=== PATIENT | male | born 1965 | race Caucasian/White ===

== ENCOUNTER 2018-01-23 09:05 | Inpatient (IN) | payer OTHER ==
[2018-01-23 10:20] VITALS: BMI 26.3
--- NOTE | 2018-01-23 12:59 | HP ---
COWS - Scale Resting Pulse: 2= MT 101-120 Sweatin=Flushed/Facial Moisture Restless Observation: 3= Extraneous Movement Pupil Size: 2= Moderately Dilated Bone or Joint Aches: 2= Severe Diffuse Aches Runny Nose/ Eye Tearin= Runny Nose/Eyes GI Upset > 30mins: 3= Vomiting/Diarrhea Tremor Observation: 2= Slight Tremor Visible Yawning Observation: 2= >3x During Session Anxiety or Irritability: 2=Irritable/Anxious Goose Flesh Skin: 0=Smooth Skin COWS Score: 22 CIWA Score - CIWA Score Nausea/Vomitin Muscle Tremors: 3 Anxiety: 3 Agitation: 3 Paroxysmal Sweats: 2 Orientation: 0-Oriented Tacttile Disturbances: 2-Mild Itch/Numbness/Burn Auditory Disturbances: 2-Mild Harshness/Frighten Visual Disturbances: 1-Very Mild Sensitivity Headache: 2-Mild CIWA-Ar Total Score: 21 Admission ROS [facility]HS - HPI Chief Complaint: i need help to stop using heroin and alcohol Allergies/Adverse Reactions: Allergies Allergy/AdvReac Type Severity Reaction Status Date / Time Penicillins Allergy Severe Verified 01/23/18 10:34 History of Present Illness: this 52 years old male with heroin and alcohol dependence,seeking detox, withdrawal symptom,last detox 2001 in [facility] seizure weight loss anxiety,depression,insomnia positive ppd no sobriety hiv since 1995 asthma - Ebola screening Have you traveled outside of the country in the last 21 days: No (N) Have you had contact with anyone from an Ebola affected area: No Have you been sick,other than usual withdrawal symptoms: No Do you have a fever: No - Review of Systems Constitutional: Diaphoresis, Malaise, Night Sweats, Changes in sleep, Weakness, Unexplained wgt Loss EENT: reports: Tearing, Nose Congestion Respiratory: reports: No Symptoms reported, Other (asthma) Cardiac: reports: Palpitations GI: reports: Diarrhea, Nausea, Vomiting, Abdominal cramping : reports: No Symptoms Reported Musculoskeletal: reports: Back Pain, Joint Pain, Muscle Pain, Joint Stiffness Integumentary: reports: Dryness Neuro: reports: Headache, Tremors Endocrine: reports: No Symptoms Reported Hematology: reports: No Symptoms Reported Psychiatric: reports: No Sypmtoms Reported, Judgement Intact, Mood/Affect Appropiate, Orientated x3, Anxious, Depressed Patient History - Patient Medical History Hx Asthma: Yes Hx Chronic Obstructive Pulmonary Disease (COPD): No Hx Cardiac Disorders: No Hx Hypertension: No Hx Seizures: Yes (seizure disorder last 3 weeks ago.) Hx Diabetes: No Hx Gastrointestinal Disorders: No Hx Genitourinary Disorders: No Hx Sexually Transmitted Disorders: No Hx Renal Disease (ESRD): No Hx Thyroid Disease: No Hx Human Immunodeficiency Virus (HIV): Yes (since 1995 non compliance) Hx Hepatitis C: Yes (treated ) Hx Depression: Yes (anxiety,insomnia) Hx Suicide Attempt: No Hx Bipolar Disorder: No Hx Schizophrenia: No Other Medical History: no suicidal,no homicidal - Patient Surgical History Past Surgical History: Yes Other Surgical History: Tendon repair to L hand in 2017 with deformty Anesthesia Reaction: No - PPD History Previous Implant?: Yes Documented Results: Positive w/o proof Implanted On Prior [facility] Admission?: No PPD to be Administered?: No - Smoking Cessation Smoking history: Current every day smoker Have you smoked in the past 12 months: Yes Aproximately how many cigarettes per day: 3 Hx Chewing Tobacco Use: No Initiated information on smoking cessation: Yes 'Breaking Loose' booklet given: 01/23/18 - Substance & Tx. History Hx Alcohol Use: Yes Hx Substance Use: Yes Substance Use Type: Alcohol, Heroin Hx Substance Use Treatment: Yes (last 2001) - Substances Abused Heroin Route: Injection Amount used: 10 BAGS Age of first use: 15 Date of Last Use: 01/22/18 Alcohol Route: Oral Frequency: 1-3 times last 30 days Amount used: 3 BEERS Age of first use: 8 Date of Last Use: 01/22/18 Family Disease History - Family Disease History Family History: Denies Admission Physical Exam [facility] - Vital Signs Vital Signs: Vital Signs - 24 hr 01/23/18 10:16 Temperature 96.5 F L Pulse Rate 101 H Respiratory 18 Rate Blood Pressure 129/82 - Physical General Appearance: Yes: Moderate Distress, Tremorous, Irritable, Sweating, Anxious HEENTM: Yes: Normocephalic, SHERLYN, Pharynx Normal Respiratory: Yes: Lungs Clear, Normal Breath Sounds, No Respiratory Distress Neck: Yes: Within Normal Limits, Supple, Trachea in good position Breast: Yes: Within Normal Limits Cardiology: Yes: Tachycardia Abdominal: Yes: Within Normal Limits, Normal Bowel Sounds, Non Tender, Soft Genitourinary: Yes: Within Normal Limits Back: Yes: Muscle Spasm Musculoskeletal: Yes: Back pain, Muscle Pain, Other (deformity of left ring and 5th fingers with limitation in extension) Extremities: Yes: Tremors, Other (deformity of left ring and 5th finger with limitation in extension) Neurological: Yes: diesel service journeyman II-XII NML intact, Alert, Motor Strength 5/5, Normal Mood /Affect Integumentary: Yes: Dry Lymphatic: Yes: Within Normal Limits - Diagnostic (1) Opioid dependence with withdrawal Current Visit: Yes Status: Acute (2) Alcohol dependence Current Visit: Yes Status: Acute Qualifiers: Substance use status: uncomplicated Qualified Code(s): F10.20 - Alcohol dependence, uncomplicated (3) Drug withdrawal seizure Current Visit: Yes Status: Chronic Qualifiers: Complication of substance-induced condition: with unspecified complication Qualified Code(s): F19.239 - Other psychoactive substance dependence with withdrawal, unspecified; R56.9 - Unspecified convulsions; R56.9 - Unspecified convulsions; R56.9 - Unspecified convulsions; R56.9 - Unspecified convulsions (4) Syncope Current Visit: Yes Status: Acute (5) IV drug user Current Visit: Yes Status: Acute (6) Nicotine dependence Current Visit: Yes Status: Chronic Qualifiers: Nicotine product type: cigarettes Substance use status: uncomplicated Qualified Code(s): F17.210 - Nicotine dependence, cigarettes, uncomplicated (7) Insomnia secondary to depression with anxiety Current Visit: Yes Status: Acute (8) Weight loss Current Visit: Yes Status: Acute (9) HIV (human immunodeficiency virus infection) Current Visit: Yes Status: Chronic (10) Asthma Current Visit: Yes Status: Chronic Qualifiers: Asthma severity: mild Asthma persistence: intermittent Asthma complication type: uncomplicated Qualified Code(s): J45.20 - Mild intermittent asthma, uncomplicated Cleared for Admission [facility] - Detox or Rehab S Level of Care: Medically Managed Detox Regimen/Protocol: Methadone S Breath Alcohol Content Breath Alcohol Content: 5 Urine Drug Screen - Results Drug Screen Negative: No Urine Drug Screen Results: OPI-Opiates
[2018-01-23] MEDS ORDERED: MAGNESIUM HYDROX 2400MG/30ML ORAL SUSPENSION 30 ML CUP PO PRN (13:18)
[2018-01-23] MEDS ORDERED: NICOTINE POLACRILEX 2 MG GUM BUC PRN (13:18)
[2018-01-23] MEDS ORDERED: MAGNESIUM CITRATE 300 ML BOTTLE PO PRN (13:18)
[2018-01-23] MEDS ORDERED: P-EPHED 60MG/TRIPROLIDI 2.5MG TABLET PO PRN (13:18)
[2018-01-23] MEDS ORDERED: MAG HYDROX/AL HYDROX/SIMETH 30 ML UNIT-DOSE CUP PO PRN (13:18)
[2018-01-23] MEDS ORDERED: guaiFENesin/D-METHORPHAN HB 10 ML UNIT-DOSE CUPS PO PRN (13:18)
[2018-01-23] MEDS ORDERED: MENTHOL/PHENOL 1 EACH UD MM PRN (13:18)
[2018-01-23] MEDS ORDERED: ALBUTEROL SO4 18 GM HFA INHALER IH PRN (13:24)
[2018-01-23] MEDS ORDERED: METHADONE HCL 10 MG TABLET (FOR DETOX USE ONLY) PO ONE ×2 (14:05→23:00)
[2018-01-23] MEDS: diazePAM 5 MG TABLET PO PRN ×2 (15:19→22:16)
[2018-01-23] MEDS: NICOTINE 21 MG/24 HOURS TOPICAL PATCH TD SCH (15:20)
[2018-01-23] MEDS ORDERED: levETIRAcetam 500 MG TABLET (FP) PO ONE (17:45)
--- NOTE | 2018-01-23 17:53 | CONSULT ---
[facility] Psychiatric Consult - Data Date of interview: 01/23/18 Admission source: [facility] Identifying data: First admission to [facility] for this 52 y/o male seeking detox treatment on for alcohol and heroin dependence.Patient is single,a father of three,domiciled and employed. Substance Abuse History: Confirmed by patient in this session.Details in current [facility] report : Smoking history: Current every day smoker. Have you smoked in the past 12 months: Yes. Aproximately how many cigarettes per day: 3. Hx Chewing Tobacco Use: No. Initiated information on smoking cessation: Yes. 'Breaking Loose' booklet given: 01/23/18. - Substance & Tx. History. Hx Alcohol Use: Yes. Hx Substance Use: Yes. Substance Use Type: Alcohol, Heroin. Hx Substance Use Treatment: Yes (last 2001). - Substances Abused. * * Heroin. Route: Injection. Amount used: 10 BAGS. Age of first use: 15. Date of Last Use: 01/22/18. Alcohol. Route: Oral. Frequency: 1-3 times last 30 days. Amount used: 3 BEERS. Age of first use: 8. Date of Last Use: 01/22/18 Medical History: Hepatitis C,positive PPD,HIV infection since 1995 (on HAART medications),seizure disorder (on levetiracetam) and a history of orthosurgery ( tendon repair in left hand / contracture of left 5th finger). Psychiatric History: Patient is a difficult and disorganized historian.Mr Arrieta seems to indicate a distant history of psychiatric care during his 10 years of incarceration.Released yesterday as per self-report." I used to be on psychiatric medications until the doctor told me that I am doing OK years ago.They stopped giving me psychiatric medications.I have been doing fine for a long time." Patient states that he does not have a psychiatric diagnosis.Denies history of suicide attempts. Physical/Sexual Abuse/Trauma History: Patient denies history of abuse.Traumatized by years of [facility]. Additional Comment: Urine Drug Screen Results: OPI-Opiates.Noted. Mental Status Exam - Mental Status Exam Alert and Oriented to: Time, Place, Person Cognitive Function: Good Patient Appearance: Well Groomed (poor oral hygiene and several missing teeth) Mood: Nervous, Anxious Affect: Appropriate, Mood Congruent Patient Behavior: Fatigued, Cooperative Speech Pattern: Clear, Appropriate Voice Loudness: Normal Thought Process: Goal Oriented Thought Disorder: Not Present Hallucinations: Denies Suicidal Ideation: Denies Homicidal Ideation: Denies Insight/Judgement: Poor Sleep: Poorly, Difficulty falling asleep Appetite: Good Muscle strength/Tone: Normal Gait/Station: Normal Psychiatric Findings - Problem List ([place] 1, 2,3) (1) Opioid dependence with withdrawal Current Visit: Yes Status: Acute (2) Alcohol dependence Current Visit: Yes Status: Acute (3) Nicotine dependence Current Visit: Yes Status: Acute (4) Substance induced mood disorder Current Visit: Yes Status: Acute (5) Insomnia Current Visit: Yes Status: Acute - Initial Treatment Plan Initial Treatment Plan: Psychoeducation.Sleep hygiene.Detoxification in progress.Ambien 5 mg po hs prn.Patient is made aware of risk for parasomnias ( sleep-walking).He agrees to follow this careplan.Seizures precautions.Observation.
[2018-01-23 18:41] LABS: URINE APPEARANCE CLEAR; URINE BILIRUBIN NEGATIVE (<2.0 mg/dL); URINE BLOOD 1+ (NEGATIVE); URINE COLOR LTYELLOW; URINE GLUCOSE (UA) NEGATIVE (NEGATIVE); URINE KETONE TRACE (NEGATIVE); URINE LEUK ESTERASE NEGATIVE (NEGATIVE); URINE NITRITE NEGATIVE (NEGATIVE); URINE PROTEIN NEGATIVE (NEGATIVE); URINE UROBILINOGEN NEGATIVE mg/dL (0.2-1.0)
[2018-01-23 19:21] LABS: EPI CELLS RARE /HPF (FEW); URINE MUCUS RARE
[2018-01-23] MEDS ORDERED: ZOLPIDEM TARTRATE 5 MG TABLET PO PRN (22:00)
[2018-01-23] MEDS ORDERED: levETIRAcetam 500 MG TABLET (FP) PO SCH (22:00)
[2018-01-23] MEDS ORDERED: MELATONIN 5 MG TABLETS PO PRN (22:00)
[2018-01-23] MEDS: THIAMINE HCL 100 MG TABLET (FP) PO SCH (22:12)
[2018-01-24] MEDS: diazePAM 5 MG TABLET PO PRN ×4 (05:11→22:20)
[2018-01-24] MEDS: ACETAMINOPHEN 325 MG TABLET (FP) PO PRN ×2 (05:11→18:14)
[2018-01-24] MEDS: levETIRAcetam 500 MG TABLET (FP) PO SCH ×2 (05:11→17:17)
[2018-01-24] MEDS: PRENATAL VITAMINS W/ FOLIC ACID TABLET (FP) PO SCH (09:16)
[2018-01-24] MEDS: NICOTINE 21 MG/24 HOURS TOPICAL PATCH TD SCH (09:20)
--- NOTE | 2018-01-24 09:30 | PN ---
[facility] CIWA - CIWA Score Nausea/Vomitin Muscle Tremors: None Anxiety: 4-Mod. Anxious/Guarded Agitation: 4-Moderately Restless Paroxysmal Sweats: 3 Orientation: 0-Oriented Tacttile Disturbances: 2-Mild Itch/Numbness/Burn Auditory Disturbances: 0-None Visual Disturbances: 0-None Headache: 0-None Present CIWA-Ar Total Score: 18 BHS COWS - Scale Resting Pulse: 0= [place] 80 or Below Sweatin= Chills/Flushing Restless Observation: 1= Difficult to Sit Still Pupil Size: 0= Normal to Room Light Bone or Joint Aches: 2= Severe Diffuse Aches Runny Nose/ Eye Tearin= None GI Upset > 30mins: 3= Vomiting/Diarrhea Tremor Observation of Outstretched Hands: 0= None Yawning Observation: 1= 1-2x During Session Anxiety or Irritability: 2=Irritable/Anxious Goose Flesh Skin: 3=Piloerection COWS Score: 13 S Progress Note (SOAP) Subjective: Vomiting, Body Aches, Anxious, Fatigue. Objective: PATIENT A & O X 3, OBSERVED AMBULATING ON UNIT. NO ACUTE DISTRESS. 01/24/18 09:32 Vital Signs Temperature 96.8 F L 01/24/18 06:52 Pulse Rate 69 01/24/18 06:52 Respiratory Rate 18 01/24/18 06:52 Blood Pressure 113/80 01/24/18 06:52 O2 Sat by Pulse Oximetry (%) Laboratory Tests 01/23/18 15:00 Urine Color Ltyellow Urine Appearance Clear Urine pH 5.0 Ur Specific [place] 1.012 Urine Protein Negative Urine Glucose (UA) Negative Urine Ketones Trace H Urine Blood 1+ H Urine Nitrite Negative Urine Bilirubin Negative Urine Urobilinogen Negative Ur Leukocyte Esterase Negative Urine WBC (Auto) None Urine RBC (Auto) 2 Ur Epithelial Cells Rare Urine Mucus Rare UA RESULTS NOTED. CBC, CMP, RPR, KEPPRA LEVEL RESULTS PENDING. 01/24/18 09:34 Assessment: 01/24/18 09:34 WITHDRAWAL SYMPTOMS. Plan: CONTINUE DETOX. AT TIME OF AM ROUND ASSESSMENT, PATIENT REPORTS PAIN THROUGHOUT LEFT ARM AND HAND IN LEFT RIBCAGE, WELL SINCE LAST NIGHT. SEVERAL SMALL AREAS OF SWELLING NOTED ON LEFT UPPER ARM. NO ERYTHEMA, WOUNDS, BLEEDING, OR UNUSUAL DISCHARGE NOTED ON LEFT ARM OR LEFT RIBCAGE. PATIENT DENIES ANY HISTORY OF IV DRUG USE IN LEFT ARM AND HE DENIES ANY HISTORY OF RECENT FALL OR TRAUMATIC INJURY TO LEFT ARM OR LEFT RIBCAGE. PATIENT DOES HAVE HISTORY OF SURGICAL TENDON REPAIR TO LEFT HAND APPROX. 3 WEEKS AGO. PATIENT DENIES NUMBNESS, TINGLING, AND WEAKNESS IN LEFT ARM. PATIENT DENIES CHEST PAIN AND DIZZINESS. DESPITE RECOMMENDATION AND STRONG ENCOURAGEMENT BY CONCRETE CARPENTER FORM PATIENT TO BE TAKEN IMMEDIATELY VIA AMBULANCE TO [facility], PATIENT REFUSED TO DO SO. REFUSAL OF RECOMMENDED CARE FORM SIGNED BY PATIENT. PATIENT ADVISED TO LET MEDICAL / NURSING STAFF KNOW IMMEDIATELY SHOULD PAIN IN ARM/RIBCAGE BECOME WORSE OF SHOULD HE NOTICE ANY NEW AREAS OF SWELLING. PATIENT VERBALIZED UNDERSTANDING OF RECOMMENDATION.
--- NOTE | 2018-01-24 09:52 | EKG ---
Test Reason : Blood Pressure : / mmHG Vent. Rate : 083 BPM Atrial Rate : 083 BPM P-R Int : 134 ms QRS Dur : 102 ms QT Int : 352 ms P-R-T Axes : 072 005 053 degrees QTc Int : 413 ms NORMAL SINUS RHYTHM NORMAL ECG NO PREVIOUS ECGS AVAILABLE Confirmed by CASA JUÁREZ, SEBASTIÁN ([id number]) on 01/24/2018 9:52:06 AM Referred By: Confirmed By:SEBASTIÁN CORMIER MD
[2018-01-24] MEDS ORDERED: METHADONE HCL 10 MG TABLET (FOR DETOX USE ONLY) PO ONE (10:00)
[2018-01-24 10:05] LABS: HEMATOCRIT 44.4 % (35.4-49); HEMOGLOBIN 15.2 GM/dL (11.7-16.9); MCH 31.3 pg (25.7-33.7); MCHC 34.1 g/dl (32.0-35.9); MEAN CELL VOLUME 91.9 fl (80-96); MEAN PLT VOLUME 8.9 fl (7.5-11.1); PLATELET COUNT 191 K/MM3 (134-434); RBC 4.83 M/mm3 (4.00-5.60); RDW 14.1 % (11.9-15.9); WHITE BLOOD COUNT 8.4 K/mm3 (4.0-10.0)
[2018-01-24 10:13] LABS: ALBUMIN 4.3 g/dl (3.4-5.0); ANION GAP 5 (8-16); BLOOD UREA NITROGEN 20 mg/dL (7-18); CALCIUM 8.6 mg/dL (8.5-10.1); CHLORIDE 106 mmol/L (98-107); CO2 28 mmol/L (21-32); GLUCOSE,RANDOM 84 mg/dL (74-106); POTASSIUM 4.1 mmol/L (3.5-5.1); SODIUM 139 mmol/L (136-145)
[2018-01-24 10:25] LABS: ALK PHOS 110 U/L (45-117); BILIRUBIN,TOTAL 0.6 mg/dL (0.2-1.0); CREATININE 0.7 mg/dL (0.7-1.3); SGOT/AST 46 U/L (15-37); SGPT/ALT 31 U/L (12-78); TOT PROT 8.6 g/dl (6.4-8.2)
[2018-01-24 11:00] LABS: SICKLE CELL SCREEN NEGATIVE (NEGATIVE)
[2018-01-24] MEDS: THIAMINE HCL 100 MG TABLET (FP) PO SCH (22:20)
[2018-01-25] MEDS: levETIRAcetam 500 MG TABLET (FP) PO SCH ×2 (05:30→17:28)
[2018-01-25] MEDS: diazePAM 5 MG TABLET PO PRN ×4 (05:30→22:17)
[2018-01-25] MEDS: IBUPROFEN 400 MG TABLET (FP) PO PRN (06:06)
[2018-01-25] MEDS: LOPERAMIDE HCL 2 MG CAPSULE PO PRN (08:38)
[2018-01-25] MEDS ORDERED: METHADONE HCL 5 MG TABLET (FOR DETOX USE ONLY) PO ONE (10:00)
[2018-01-25] MEDS: PRENATAL VITAMINS W/ FOLIC ACID TABLET (FP) PO SCH (10:04)
[2018-01-25] MEDS: NICOTINE 21 MG/24 HOURS TOPICAL PATCH TD SCH (10:08)
--- NOTE | 2018-01-25 16:12 | PN ---
S COWS - Scale Resting Pulse: 0= ID 80 or Below Sweatin=Flushed/Facial Moisture Restless Observation: 3= Extraneous Movement Pupil Size: 1= Pupils >than Normal Bone or Joint Aches: 2= Severe Diffuse Aches Runny Nose/ Eye Tearin= Runny Nose/Eyes GI Upset > 30mins: 2= Nausea/Diarrhea Tremor Observation of Outstretched Hands: 2= Slight Tremor Visible Yawning Observation: 1= 1-2x During Session Anxiety or Irritability: 2=Irritable/Anxious Goose Flesh Skin: 0=Smooth Skin COWS Score: 17 S Progress Note (SOAP) Subjective: Generalized body ache, sweating, anxious Objective: 01/25/18 16:09 Last Vital Signs Temp Pulse Resp BP Pulse Ox 96.4 F L 79 18 115/82 01/25/18 14:21 01/25/18 14:21 01/25/18 14:21 01/25/18 14:21 Laboratory Tests 01/23/18 01/24/18 01/24/18 15:00 06:00 06:00 WBC 8.4 RBC 4.83 Hgb 15.2 Hct 44.4 MCV 91.9 MCH 31.3 MCHC 34.1 RDW 14.1 Plt Count 191 MPV 8.9 Sickle Cell Screen Negative Sodium 139 Potassium 4.1 Chloride 106 Carbon Dioxide 28 Anion Gap 5 L BUN 20 H Creatinine 0.7 Creat Clearance w eGFR > 60 Random Glucose 84 Calcium 8.6 Total Bilirubin 0.6 AST 46 H ALT 31 Alkaline Phosphatase 110 Total Protein 8.6 H Albumin 4.3 Urine Color Ltyellow Urine Appearance Clear Urine pH 5.0 Ur Specific [place] 1.012 Urine Protein Negative Urine Glucose (UA) Negative Urine Ketones Trace H Urine Blood 1+ H Urine Nitrite Negative Urine Bilirubin Negative Urine Urobilinogen Negative Ur Leukocyte Esterase Negative Urine WBC (Auto) None Urine RBC (Auto) 2 Ur Epithelial Cells Rare Urine Mucus Rare RPR Titer 01/24/18 06:00 WBC RBC Hgb Hct MCV MCH MCHC RDW Plt Count MPV Sickle Cell Screen Sodium Potassium Chloride Carbon Dioxide Anion Gap BUN Creatinine Creat Clearance w eGFR Random Glucose Calcium Total Bilirubin AST ALT Alkaline Phosphatase Total Protein Albumin Urine Color Urine Appearance Urine pH Ur Specific [place] Urine Protein Urine Glucose (UA) Urine Ketones Urine Blood Urine Nitrite Urine Bilirubin Urine Urobilinogen Ur Leukocyte Esterase Urine WBC (Auto) Urine RBC (Auto) Ur Epithelial Cells Urine Mucus RPR Titer Nonreactive Labs reviewed: bun 20, abnormal UA Assessment: 01/25/18 16:10 Withdrawal symptoms Noted with azotemia and abnormal UA Plan: Continue detox Azotemia: encouraged PO hydration status Abnormal UA: encouraged to drink lots of water for hydration, repeat UA
[2018-01-25] MEDS: hydrOXYzine PAMOATE 25 MG CAPSULE (FP) PO PRN (17:29)
[2018-01-25] MEDS: THIAMINE HCL 100 MG TABLET (FP) PO SCH (22:22)
[2018-01-26] MEDS: LOPERAMIDE HCL 2 MG CAPSULE PO PRN ×2 (04:01→17:42)
[2018-01-26] MEDS: diazePAM 5 MG TABLET PO PRN ×2 (04:01→09:19)
[2018-01-26] MEDS: levETIRAcetam 500 MG TABLET (FP) PO SCH ×2 (05:41→17:03)
[2018-01-26] MEDS: CYCLOBENZAPRINE HCL 10 MG TABLET (FP) PO PRN ×2 (05:41→17:35)
[2018-01-26] MEDS: hydrOXYzine PAMOATE 25 MG CAPSULE (FP) PO PRN ×2 (05:42→17:03)
[2018-01-26] MEDS: PRENATAL VITAMINS W/ FOLIC ACID TABLET (FP) PO SCH (09:18)
[2018-01-26] MEDS: NICOTINE 21 MG/24 HOURS TOPICAL PATCH TD SCH (09:19)
[2018-01-26] MEDS ORDERED: METHADONE HCL 5 MG TABLET (FOR DETOX USE ONLY) PO ONE (10:00)
[2018-01-26 10:44] LABS: URINE APPEARANCE CLEAR; URINE BILIRUBIN NEGATIVE (<2.0 mg/dL); URINE BLOOD NEGATIVE (NEGATIVE); URINE COLOR YELLOW; URINE GLUCOSE (UA) NEGATIVE (NEGATIVE); URINE KETONE NEGATIVE (NEGATIVE); URINE LEUK ESTERASE NEGATIVE (NEGATIVE); URINE NITRITE NEGATIVE (NEGATIVE); URINE PROTEIN NEGATIVE (NEGATIVE); URINE UROBILINOGEN NEGATIVE mg/dL (0.2-1.0)
--- NOTE | 2018-01-26 12:36 | PN ---
[facility] Progress Note (SOAP) Subjective: Sweats Shakes Sleep disturbance Objective: 01/26/18 12:35 A & O x 3 irritable Anxious Vital Signs Temperature 96.3 F L 01/26/18 09:15 Pulse Rate 85 01/26/18 09:15 Respiratory Rate 20 01/26/18 09:15 Blood Pressure 118/70 01/26/18 09:15 O2 Sat by Pulse Oximetry (%) Assessment: 01/26/18 12:35 Withdrawal sx Plan: Continue detox
[2018-01-26] MEDS: THIAMINE HCL 100 MG TABLET (FP) PO SCH ×2 (22:51→23:58)
[2018-01-27] MEDS: hydrOXYzine PAMOATE 25 MG CAPSULE (FP) PO PRN ×2 (01:52→05:38)
[2018-01-27] MEDS: levETIRAcetam 500 MG TABLET (FP) PO SCH ×2 (05:38→18:22)
[2018-01-27] MEDS: CYCLOBENZAPRINE HCL 10 MG TABLET (FP) PO PRN (05:38)
[2018-01-27] MEDS: IBUPROFEN 400 MG TABLET (FP) PO PRN (09:54)
[2018-01-27] MEDS: PRENATAL VITAMINS W/ FOLIC ACID TABLET (FP) PO SCH (09:54)
[2018-01-27] MEDS ORDERED: METHADONE HCL 10 MG TABLET (FOR DETOX USE ONLY) PO ONE (10:00)
[2018-01-27] MEDS: NICOTINE 21 MG/24 HOURS TOPICAL PATCH TD SCH (11:40)
--- NOTE | 2018-01-27 12:51 | PN ---
S Progress Note (SOAP) Subjective: Body Aches, Anxious, Diarrhea, Tremors. Patient reports that he is still feeling pain in Left forearm, and hand. Objective: PATIENT A & O X 2 (UNCERTAIN ABOUT CURRENT DAY / DATE). PATIENT OBSERVED AMBULATING ON UNIT. NO ACUTE DISTRESS SMALL AREA OF SWELLING NOTED NEAR LEFT ELBOW. NO ERYTHEMA, BLEEDING, WOUNDS, OR UNUSUAL DISCHARGE NOTED AT AFFECTED SITE. 01/27/18 12:45 Vital Signs Temperature 97.6 F 01/27/18 09:11 Pulse Rate 85 01/27/18 09:11 Respiratory Rate 18 01/27/18 09:11 Blood Pressure 117/82 01/27/18 09:11 O2 Sat by Pulse Oximetry (%) Laboratory Tests 01/23/18 01/24/18 01/24/18 15:00 06:00 06:00 WBC 8.4 RBC 4.83 Hgb 15.2 Hct 44.4 MCV 91.9 MCH 31.3 MCHC 34.1 RDW 14.1 Plt Count 191 MPV 8.9 Sickle Cell Screen Negative Sodium 139 Potassium 4.1 Chloride 106 Carbon Dioxide 28 Anion Gap 5 L BUN 20 H Creatinine 0.7 Creat Clearance w eGFR > 60 Random Glucose 84 Calcium 8.6 Total Bilirubin 0.6 AST 46 H ALT 31 Alkaline Phosphatase 110 Total Protein 8.6 H Albumin 4.3 Urine Color Ltyellow Urine Appearance Clear Urine pH 5.0 Ur Specific [place] 1.012 Urine Protein Negative Urine Glucose (UA) Negative Urine Ketones Trace H Urine Blood 1+ H Urine Nitrite Negative Urine Bilirubin Negative Urine Urobilinogen Negative Ur Leukocyte Esterase Negative Urine WBC (Auto) None Urine RBC (Auto) 2 Ur Epithelial Cells Rare Urine Mucus Rare Levetiracetam RPR Titer 01/24/18 01/24/18 01/26/18 06:00 06:30 08:00 WBC RBC Hgb Hct MCV MCH MCHC RDW Plt Count MPV Sickle Cell Screen Sodium Potassium Chloride Carbon Dioxide Anion Gap BUN Creatinine Creat Clearance w eGFR Random Glucose Calcium Total Bilirubin AST ALT Alkaline Phosphatase Total Protein Albumin Urine Color Yellow Urine Appearance Clear Urine pH 5.0 Ur Specific [place] 1.021 Urine Protein Negative Urine Glucose (UA) Negative Urine Ketones Negative Urine Blood Negative Urine Nitrite Negative Urine Bilirubin Negative Urine Urobilinogen Negative Ur Leukocyte Esterase Negative Urine WBC (Auto) Urine RBC (Auto) Ur Epithelial Cells Urine Mucus Levetiracetam None detected RPR Titer Nonreactive LABS NOTED. Assessment: 01/27/18 12:48 WITHDRAWAL SYMPTOMS. Plan: CONTINUE DETOX. PATIENT AGAIN ADVISED TO GO TO [facility] ER FOR FURTHER EVALUATION OF LEFT ARM. HOWEVER, PATIENT DECLINED TO DO SO AGAIN. PATIENT ADVISED TO NOTIFY MEDICAL / NURSING STAFF SHOULD PAIN AND / OR SWELLING IN LEFT ARM BECOME MORE SEVERE AT ANY TIME.
[2018-01-27] MEDS ORDERED: COLLOIDAL OATMEAL 1 BAR EACH TP PRN (14:31)
[2018-01-27] MEDS: THIAMINE HCL 100 MG TABLET (FP) PO SCH (22:44)
[2018-01-28] MEDS: levETIRAcetam 500 MG TABLET (FP) PO SCH (05:02)
[2018-01-28] MEDS ORDERED: METHADONE HCL 5 MG TABLET (FOR DETOX USE ONLY) PO ONE (06:00)
[2018-01-28 06:26] VITALS: BP 124/82; PULSE 72; TEMP 96.1
--- NOTE | 2018-01-28 10:25 | PN ---
[facility] Progress Note (SOAP) Subjective: DETOX COMPLETED. ALERT O X 3. PT REFERR[facility]. INITIALLY , PATIENT REFUSED TO GO TO REHAB WANTING TO GO HOME AND VERY AGITATED, RESTLESS AND CANTANKEROUS HAVING A DIFFICULT TIME TO COME UP WITH A PLAN. THE SECURITY STAFF, HIS COUNSELOR ALFA MAZA AND ELECTRONICS MECHANIC APPRENTICE ANNETTE WARD WERE ON THE UNIT TO CALM AND ENCOURAGE PATIENT ON PROPER DECISION FOR AFTERCARE. AT THE END HE WENT TO [address] TO CONTINUE WITH TREATMENT. Objective: 01/28/18 10:25 Vital Signs Temperature 96.1 F L 01/28/18 06:25 Pulse Rate 72 01/28/18 06:25 Respiratory Rate 18 01/28/18 06:25 Blood Pressure 124/82 01/28/18 06:25 O2 Sat by Pulse Oximetry (%) Laboratory Last Values WBC 8.4 K/mm3 (4.0-10.0) 01/24/18 06:00 RBC 4.83 M/mm3 (4.00-5.60) 01/24/18 06:00 Hgb 15.2 GM/dL (11.7-16.9) 01/24/18 06:00 Hct 44.4 % (35.4-49) 01/24/18 06:00 MCV 91.9 fl (80-96) 01/24/18 06:00 MCH 31.3 pg (25.7-33.7) 01/24/18 06:00 MCHC 34.1 g/dl (32.0-35.9) 01/24/18 06:00 RDW 14.1 % (11.9-15.9) 01/24/18 06:00 Plt Count 191 K/MM3 (134-434) 01/24/18 06:00 MPV 8.9 fl (7.5-11.1) 01/24/18 06:00 Sickle Cell Screen Negative (NEGATIVE) 01/24/18 06:00 Sodium 139 mmol/L (136-145) 01/24/18 06:00 Potassium 4.1 mmol/L (3.5-5.1) 01/24/18 06:00 Chloride 106 mmol/L (98-107) 01/24/18 06:00 Carbon Dioxide 28 mmol/L (21-32) 01/24/18 06:00 Anion Gap 5 (8-16) L 01/24/18 06:00 BUN 20 mg/dL (7-18) H 01/24/18 06:00 Creatinine 0.7 mg/dL (0.7-1.3) 01/24/18 06:00 Creat Clearance w eGFR > 60 (>60) 01/24/18 06:00 Random Glucose 84 mg/dL (74-106) 01/24/18 06:00 Calcium 8.6 mg/dL (8.5-10.1) 01/24/18 06:00 Total Bilirubin 0.6 mg/dL (0.2-1.0) 01/24/18 06:00 AST 46 U/L (15-37) H 01/24/18 06:00 ALT 31 U/L (12-78) 01/24/18 06:00 Alkaline Phosphatase 110 U/L (45-117) 01/24/18 06:00 Total Protein 8.6 g/dl (6.4-8.2) H 01/24/18 06:00 Albumin 4.3 g/dl (3.4-5.0) 01/24/18 06:00 Urine Color Yellow 01/26/18 08:00 Urine Appearance Clear 01/26/18 08:00 Urine pH 5.0 (5.0-8.0) 01/26/18 08:00 Ur Specific [place] 1.021 (1.001-1.035) 01/26/18 08:00 Urine Protein Negative (NEGATIVE) 01/26/18 08:00 Urine Glucose (UA) Negative (NEGATIVE) 01/26/18 08:00 Urine Ketones Negative (NEGATIVE) 01/26/18 08:00 Urine Blood Negative (NEGATIVE) 01/26/18 08:00 Urine Nitrite Negative (NEGATIVE) 01/26/18 08:00 Urine Bilirubin Negative (<2.0 mg/dL) 01/26/18 08:00 Urine Urobilinogen Negative mg/dL (0.2-1.0) 01/26/18 08:00 Ur Leukocyte Esterase Negative (NEGATIVE) 01/26/18 08:00 Urine WBC (Auto) None /hpf (3-5) 01/23/18 15:00 Urine RBC (Auto) 2 /hpf (0-3) 01/23/18 15:00 Ur Epithelial Cells Rare /HPF (FEW) 01/23/18 15:00 Urine Mucus Rare 01/23/18 15:00 Levetiracetam None detected MCG/ML (10.0-40.0) 01/24/18 06:30 RPR Titer Nonreactive (NONREACTIVE) 01/24/18 06:00 Assessment: 01/28/18 10:25 MEDICALLY STABLE Plan: D/C PT TODAY TO REHAB
--- NOTE | 2018-01-28 10:26 | DS ---
[facility] Detox Discharge Summary Admission Date: 01/23/18 Discharge Date: 01/28/18 - History Present History: Alcohol Dependence, Opioid Dependence Additional Comments: DTOX COMPLETED. ALERT O X3. REFERRED TO [place] [id number] [facility] FOR AFTERCARE TODAY. 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 Pertinent Past History: PLEASE SEE DX BELOW - Physical Exam Results Vital Signs: Vital Signs Temperature 96.1 F L 01/28/18 06:25 Pulse Rate 72 01/28/18 06:25 Respiratory Rate 18 01/28/18 06:25 Blood Pressure 124/82 01/28/18 06:25 O2 Sat by Pulse Oximetry (%) Pertinent Admission Physical Exam Findings: WITHDRAWAL SX Vital Signs Temperature 96.1 F L 01/28/18 06:25 Pulse Rate 72 01/28/18 06:25 Respiratory Rate 18 01/28/18 06:25 Blood Pressure 124/82 01/28/18 06:25 O2 Sat by Pulse Oximetry (%) Laboratory Last Values WBC 8.4 K/mm3 (4.0-10.0) 01/24/18 06:00 RBC 4.83 M/mm3 (4.00-5.60) 01/24/18 06:00 Hgb 15.2 GM/dL (11.7-16.9) 01/24/18 06:00 Hct 44.4 % (35.4-49) 01/24/18 06:00 MCV 91.9 fl (80-96) 01/24/18 06:00 MCH 31.3 pg (25.7-33.7) 01/24/18 06:00 MCHC 34.1 g/dl (32.0-35.9) 01/24/18 06:00 RDW 14.1 % (11.9-15.9) 01/24/18 06:00 Plt Count 191 K/MM3 (134-434) 01/24/18 06:00 MPV 8.9 fl (7.5-11.1) 01/24/18 06:00 Sickle Cell Screen Negative (NEGATIVE) 01/24/18 06:00 Sodium 139 mmol/L (136-145) 01/24/18 06:00 Potassium 4.1 mmol/L (3.5-5.1) 01/24/18 06:00 Chloride 106 mmol/L (98-107) 01/24/18 06:00 Carbon Dioxide 28 mmol/L (21-32) 01/24/18 06:00 Anion Gap 5 (8-16) L 01/24/18 06:00 BUN 20 mg/dL (7-18) H 01/24/18 06:00 Creatinine 0.7 mg/dL (0.7-1.3) 01/24/18 06:00 Creat Clearance w eGFR > 60 (>60) 01/24/18 06:00 Random Glucose 84 mg/dL (74-106) 01/24/18 06:00 Calcium 8.6 mg/dL (8.5-10.1) 01/24/18 06:00 Total Bilirubin 0.6 mg/dL (0.2-1.0) 01/24/18 06:00 AST 46 U/L (15-37) H 01/24/18 06:00 ALT 31 U/L (12-78) 01/24/18 06:00 Alkaline Phosphatase 110 U/L (45-117) 01/24/18 06:00 Total Protein 8.6 g/dl (6.4-8.2) H 01/24/18 06:00 Albumin 4.3 g/dl (3.4-5.0) 01/24/18 06:00 Urine Color Yellow 01/26/18 08:00 Urine Appearance Clear 01/26/18 08:00 Urine pH 5.0 (5.0-8.0) 01/26/18 08:00 Ur Specific [place] 1.021 (1.001-1.035) 01/26/18 08:00 Urine Protein Negative (NEGATIVE) 01/26/18 08:00 Urine Glucose (UA) Negative (NEGATIVE) 01/26/18 08:00 Urine Ketones Negative (NEGATIVE) 01/26/18 08:00 Urine Blood Negative (NEGATIVE) 01/26/18 08:00 Urine Nitrite Negative (NEGATIVE) 01/26/18 08:00 Urine Bilirubin Negative (<2.0 mg/dL) 01/26/18 08:00 Urine Urobilinogen Negative mg/dL (0.2-1.0) 01/26/18 08:00 Ur Leukocyte Esterase Negative (NEGATIVE) 01/26/18 08:00 Urine WBC (Auto) None /hpf (3-5) 01/23/18 15:00 Urine RBC (Auto) 2 /hpf (0-3) 01/23/18 15:00 Ur Epithelial Cells Rare /HPF (FEW) 01/23/18 15:00 Urine Mucus Rare 01/23/18 15:00 Levetiracetam None detected MCG/ML (10.0-40.0) 01/24/18 06:30 RPR Titer Nonreactive (NONREACTIVE) 01/24/18 06:00 - Treatment Hospital Course: Detox Protocol Followed, Detoxed Safely, Responded well, Discharged Condition Good, Rehab Referral Accepted - Medication Discharge Medications: Ambulatory Orders Albuterol Sulfate Inhaler - [Ventolin HFA Inhaler -] 2 inh PO Q4H PRN 01/23/18 Darunavir Ethanolate [Prezista -] 800 mg PO DAILY 01/23/18 levETIRAcetam [Keppra -] 500 mg PO BID #60 tablet 01/28/18 - Diagnosis (1) Opioid dependence with withdrawal Status: Acute (2) Weight loss Status: Acute (3) Asthma Status: Chronic Qualifiers: Asthma severity: mild Asthma persistence: intermittent Asthma complication type: uncomplicated Qualified Code(s): J45.20 - Mild intermittent asthma, uncomplicated (4) HIV (human immunodeficiency virus infection) Status: Chronic (5) Nicotine dependence Status: Acute Qualifiers: Nicotine product type: cigarettes Substance use status: in withdrawal Qualified Code(s): F17.213 - Nicotine dependence, cigarettes, with withdrawal (6) Hx of seizure disorder Status: Chronic (7) Alcohol dependence with uncomplicated withdrawal Status: Acute - AMA Did Patient Leave Against Medical Advice: No
== END 2018-01-28 09:28 | disposition other institution (70) | DRG 773 ==
LOC: YASAS 09:05 → Y3N 13:49
PROVIDERS: ADMIT Internal Medicine; ATTEND Internal Medicine
PROC: HZ2ZZZZ Detoxification Services for Substance Abuse Treatment (ICD-10-PCS; principal; 2018-01-23)
DX: F11.23 Opioid dependence with withdrawal (principal); F10.230 Alcohol dependence with withdrawal, uncomplicated; F17.213 Nicotine dependence, cigarettes, with withdrawal; F19.24 Other psychoactive substance dependence with psychoactive substance-induced mood disorder; F51.05 Insomnia due to other mental disorder; Z21 Asymptomatic human immunodeficiency virus [HIV] infection status; J45.20 Mild intermittent asthma, uncomplicated; R56.9 Unspecified convulsions; B18.2 Chronic viral hepatitis C; R82.90 Unspecified abnormal findings in urine; R76.11 Nonspecific reaction to tuberculin skin test without active tuberculosis; Z59.0 Homelessness
CPT/HCPCS: 36415; 71046-TC-FY; 80053; 81003; 81015; 85027; 85660; 86593; 93005; 93010

== ENCOUNTER 2018-01-28 10:35 | Inpatient (IN) | payer OTHER ==
[2018-01-28] MEDS ORDERED: IBUPROFEN 400 MG TABLET (FP) PO PRN (11:35)
[2018-01-28] MEDS ORDERED: ACETAMINOPHEN 325 MG TABLET (FP) PO PRN (11:35)
[2018-01-28] MEDS ORDERED: MENTHOL/PHENOL 1 EACH UD MM PRN (11:35)
[2018-01-28] MEDS ORDERED: MAGNESIUM CITRATE 300 ML BOTTLE PO PRN (11:35)
[2018-01-28] MEDS ORDERED: P-EPHED 60MG/TRIPROLIDI 2.5MG TABLET PO PRN (11:35)
[2018-01-28] MEDS ORDERED: LOPERAMIDE HCL 2 MG CAPSULE PO PRN (11:35)
[2018-01-28] MEDS ORDERED: MAG HYDROX/AL HYDROX/SIMETH 30 ML UNIT-DOSE CUP PO PRN (11:35)
[2018-01-28] MEDS ORDERED: hydrOXYzine PAMOATE 50 MG CAPSULE (FP) PO PRN (11:35)
[2018-01-28] MEDS ORDERED: guaiFENesin/D-METHORPHAN HB 10 ML UNIT-DOSE CUPS PO PRN (11:35)
[2018-01-28] MEDS ORDERED: MAGNESIUM HYDROX 2400MG/30ML ORAL SUSPENSION 30 ML CUP PO PRN (11:35)
[2018-01-28] MEDS ORDERED: CYCLOBENZAPRINE HCL 10 MG TABLET (FP) PO PRN (11:52)
[2018-01-28] MEDS ORDERED: NICOTINE POLACRILEX 2 MG GUM BUC PRN (11:53)
[2018-01-28] MEDS ORDERED: COLLOIDAL OATMEAL 1 BAR EACH TP PRN (11:54)
[2018-01-28] MEDS ORDERED: ALBUTEROL SO4 18 GM HFA INHALER IH PRN (12:01)
--- NOTE | 2018-01-28 13:16 | HP ---
Psychiatrist Admission - Data Date of interview: 01/28/18 Identifying data: This is the first 5N inpatient rehabilitation admission for this 52 year old male who is single, a father of three, he is domiciled and employed. 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 Smokes cigarettes 5-6 daily. Psychiatric History: Patient is poor historian, he reports history of psychiatric care during his 10 years of incarceration , states he was on medications in the past "doctor told me that I am doing OK years ago". States they stopped giving medications and as a self report "have been doing fine for a long time." Patient states that he does not have a psychiatric diagnosis. Denies history of suicide attempts. Physical/Sexual Abuse/Trauma History: Denies history of abuse, traumatized inmtison, states he served 40 years of his life in and out. Vital Signs: Vital Signs - 24 hr 01/28/18 11:34 Temperature 98.6 F Pulse Rate 82 Respiratory 18 Rate Blood Pressure 129/82 Allergies/Adverse Reactions: Allergies Allergy/AdvReac Type Severity Reaction Status Date / Time Penicillins Allergy Severe Rash Verified 01/28/18 11:46 Date of last physical exam: 01/23/18 Concur with the findings of this exam: Yes - Substance Abuse/Tx History Hx Alcohol Use: Yes (1-3 times last month) Hx Substance Use: Yes Substance Use Type: Heroin (10 bags a day) Hx Substance Use Treatment: No Mental Status Exam - Mental Status Exam Alert and Oriented to: Time, Place, Person Cognitive Function: Grossly Intact Patient Appearance: Well Groomed Mood: Irritable Affect: Mood Congruent Patient Behavior: Appropriate, Cooperative Speech Pattern: Clear Voice Loudness: Normal Thought Process: Intact Thought Disorder: Not Present Hallucinations: Denies Suicidal Ideation: Denies Homicidal Ideation: Denies Insight/Judgement: Fair Sleep: Fair Appetite: Fair Muscle strength/Tone: Normal Gait/Station: Normal Psychiatric Findings - Problem List ([place] 1, 2,3) (1) Opioid dependence Current Visit: Yes Status: Acute (2) Alcohol dependence Current Visit: No Status: Acute Qualifiers: Substance use status: uncomplicated Qualified Code(s): F10.20 - Alcohol dependence, uncomplicated (3) Nicotine dependence Current Visit: No Status: Acute Qualifiers: Nicotine product type: cigarettes Substance use status: in withdrawal Qualified Code(s): F17.213 - Nicotine dependence, cigarettes, with withdrawal (4) Substance induced mood disorder Current Visit: No Status: Acute - Initial Treatment Plan Initial Treatment Plan: monitor progress as needed.
[2018-01-28] MEDS: NICOTINE 21 MG/24 HOURS TOPICAL PATCH TD SCH (14:32)
[2018-01-28] MEDS ORDERED: MELATONIN 5 MG TABLETS PO PRN (22:00)
[2018-01-28] MEDS: THIAMINE HCL 100 MG TABLET (FP) PO SCH ×2 (22:33→23:23)
[2018-01-28] MEDS: levETIRAcetam 500 MG TABLET (FP) PO SCH ×2 (22:33→23:23)
[2018-01-29] MEDS: levETIRAcetam 500 MG TABLET (FP) PO SCH ×2 (09:36→23:43)
[2018-01-29] MEDS: NICOTINE 21 MG/24 HOURS TOPICAL PATCH TD SCH (09:37)
[2018-01-29] MEDS ORDERED: PRENATAL VITAMINS W/ FOLIC ACID TABLET (FP) PO SCH (10:00)
--- NOTE | 2018-01-29 15:42 | PN ---
[facility] Progress Note Note: Patient requesting methadone for today. Patient reports he was in a methadone program, but was incarcerated and release from longterm yesterday and was discharged from the program. Patent unable to provide the name of the program. Patient reports that earlier today he fell around 3:30 pm while he was alone in his room, and hit the back of his head. Patient did not report the fall to the staff. Vital Signs Temperature 98.1 F 01/29/18 07:15 Pulse Rate 68 01/29/18 07:15 Respiratory Rate 18 01/29/18 07:15 Blood Pressure 113/74 01/29/18 07:15 O2 Sat by Pulse Oximetry (%) A/P Patient Aox3 self directing + occipital tenderness, no erythema or bleeding, skin intact Normal HR and Rhythm No adventitious lung sounds Full ROM, ambulating in the unit without difficulties negative neuro signs - s/p unwitnessed fall Plan: Fall Protocol #1
--- NOTE | 2018-01-29 22:29 | PN ---
S Progress Note Note: Patient return today from the unit after evaluation at the ED for s/p fall. Patient was given Keppra 1,000 mg this evening while in the Ed. Schedule 500mg Keppra to be withheld for tonight and restart in the AM.
[2018-01-29] MEDS: THIAMINE HCL 100 MG TABLET (FP) PO SCH (23:43)
[2018-01-30 07:35] VITALS: BP 120/89; PULSE 84; TEMP 98.5
[2018-01-30] MEDS ORDERED: levETIRAcetam 500 MG TABLET (FP) PO SCH (10:00)
--- NOTE | 2018-01-30 10:42 | PN ---
[facility] Progress Note Note: The freelance copywriter upon entering to the unit 7.30 am , observed patient standing in front of entrance door with his belonging, asked the patient why he is here, reported he is leaving AMA, patient was encouraged to stay for breakfast and wait for the staff. Later was told by the staff that patient walked away from the unit, patient appeared stable.
== END 2018-01-30 07:40 | disposition left against medical advice (07) | DRG 770 ==
LOC: YASAS 10:35 → Y5N 10:36
PROVIDERS: ADMIT Psychiatry & Neurology Psychiatry; ATTEND Psychiatry & Neurology Psychiatry
PROC: HZ42ZZZ Group Counseling for Substance Abuse Treatment, Cognitive-Behavioral (ICD-10-PCS; principal; 2018-01-28)
DX: F11.20 Opioid dependence, uncomplicated (principal); F10.20 Alcohol dependence, uncomplicated; F17.213 Nicotine dependence, cigarettes, with withdrawal; F19.24 Other psychoactive substance dependence with psychoactive substance-induced mood disorder; B18.2 Chronic viral hepatitis C; R76.11 Nonspecific reaction to tuberculin skin test without active tuberculosis; Z21 Asymptomatic human immunodeficiency virus [HIV] infection status; G40.509 Epileptic seizures related to external causes, not intractable, without status epilepticus; Z59.0 Homelessness